=== PATIENT | male | born 1950 ===

== ENCOUNTER 2022-12-30 09:24 | Day surgery (SDC) | payer OTHER ==
[2022-12-27 12:14] LABS: Potassium 4.4 mEq/L (3.5-5.1)
--- NOTE | 2022-12-28 11:58 | EKG ---
Test Date: 2022-12-27 Test Time: 11:44:32 Body And Frame Technician: SEAN MEASUREMENT RESULTS: Intervals: Rate: 61 OR: 198 QRSD: 96 QT: 414 QTc: 416 Dolphin: P: 47 OR: 198 QRS: 40 T: 77 INTERPRETIVE STATEMENTS: Normal sinus rhythm Low voltage QRS Septal infarct, age undetermined Abnormal ECG Compared to ECG 08/26/2007 11:52:43 Low QRS voltage now present Myocardial infarct finding now present Sinus bradycardia no longer present Sinus arrhythmia no longer present Electronically Signed On 12-28-22 11:55:55 CDT by Severo Mcdaniel
[2022-12-30] MEDS ORDERED: NA CHLORIDE 0.9% 1,000 ML ONE (09:42)
[2022-12-30] MEDS ORDERED: propofoL 200 MG/20 ML VIAL IV ONE ×2 (11:57→12:39)
[2022-12-30] MEDS ORDERED: LIDOCAINE 2% MPF 5 ML VIAL ONE (11:57)
[2022-12-30] MEDS ORDERED: FENTANYL CITR 100 MCG/2 ML ONE (11:57)
[2022-12-30] MEDS ORDERED: ONDANSETRON 4 MG/2 ML VIAL ONE (11:58)
[2022-12-30] MEDS ORDERED: OXYMETAZOLINE HCL 0.05% 15ML NAS ONE (12:20)
[2022-12-30] MEDS ORDERED: LIDOCAINE HCL/EPINEPHRINE 20 ML MDV ONE (12:20)
[2022-12-30] MEDS ORDERED: OFLOXACIN OPH 0.3%-5 ML BTL ONE (12:20)
[2022-12-30] MEDS ORDERED: INSULIN REGULAR (HUMAN) 100 UNIT/ML ONE (12:24)
--- NOTE | 2022-12-30 13:49 | P.OP ---
Marker Shipments: NONE,NONE Preoperative diagnosis: Basal cell carcinoma right ear Postoperative diagnosis: Same Primary procedure: Excision malignancy, right ear 2.5 x 1.5 cm Secondary procedure: Closure with local tissue rearrangement to the right ear Anesthesia: Total intravenous anesthesia, general Estimated blood loss: 5 to 10 mL Specimen: Right ear, frozen section. Suture hays 12:00/superior Findings: Negative margin on frozen section Operative Technique: After adequate plane of anesthesia, the right ear was examined and injected with 1% lidocaine with epinephrine. The planned skin graft site on the right neck was also injected in preparation for skin graft. A total of 8 mL was used. The right face, ear and neck was prepped with Betadine and draped with a sterile fashion taking care to avoid draping over the patient's nasal cannula. The right lateral/superior helix was noted to have a healed biopsy site with an area of gross tumor on the posterior aspect of the pinna. A margin of several millimeters was designed around the gross visible lesion. A 15 blade scalpel was used to incise through the full-thickness of the skin and the specimen was sharply elevated from the underlying perichondrium. A suture was placed at the superiormost aspect, marking 12:00 for pathology orientation and sent for frozen section analysis. The defect measured 2.5 x 1.5 cm encompassing the skin of the rim of the helix and posterior portion of the pinna. Frozen section confirmed negative margins. Reconstruction options were carefully considered. After further examination and undermining of the wound, it was felt that a rotational flap would allow improved cosmesis, limit morbidity from a donor site, potentially result in fa ster healing and offered the best reconstruction option. A 2 to 2-1/2 cm incision was made along inferiorly along the edge of the helical rim and the tissue from the posterior aspect of the ear was widely undermined to allow for mobilization of the skin. The flap of tissue was then rotated superiorly resulting in an inverted L shaped incision. A small burrows triangle was excised using Bovie electrocautery from the posterior aspect of the wound. The flap was secured in position using interrupted deep Vicryl sutures. The incision was then closed in a running fashion. A additional interrupted suture was placed at the angle of the L to improve closure and reduce tension in this area. Overall the cosmesis was felt to be excellent. A mastoid dressing was applied to the right ear to apply compression and prevent fluid buildup under the skin flaps. The patient was then returned to care of anesthesia for transportation to the recovery room. The patient's is instructed to remove the mastoid dressing on Monday and begin routine wound care including cleaning twice daily with soap and water followed by application of antibiotic ointment. Complications: None Implants: None Fluids & blood products: crystalloid 600ml Transferred to: Recovery Room Condition: Good
[2022-12-30 14:30] VITALS: BP 133/74; TEMP 97; O2SAT 99
== END 2022-12-30 15:09 | disposition home or self-care (01) ==
LOC: OR 09:24
PROVIDERS: ATTEND Otolaryngology
PROC: 0HX2XZZ Transfer Right Ear Skin, External Approach (ICD-10-PCS; principal; 2022-12-30 10:15)
DX: C44.212 Basal cell carcinoma of skin of right ear and external auricular canal (principal); R03.0 Elevated blood-pressure reading, without diagnosis of hypertension; E66.3 Overweight
CPT/HCPCS: 93005; 80048; 36415; 82947 ×2; 88331; 88332; 88305; 14060; J2704 ×2; J2001; J3010; J2405; J7030; J1815